=== PATIENT | male | born 1955 | race Caucasian/White ===

== ENCOUNTER → 2017-07-07 | Outpatient (CLI) | payer OTHER ==
--- NOTE | 2017-07-07 12:26 | RADIOLOGY REPORT (SQ) ---
EXAM DESCRIPTION: FOOT RIGHT COMPLETE COMPLETED DATE/TIME: 07/07/2017 12:01 pm REASON FOR STUDY: PAIN IN RIGHT FOOT M25.571 PAIN IN RIGHT ANKLE AND JOINTS OF RIGHT FOOT M79.671 PAIN IN RIGHT FOOT COMPARISON: None. NUMBER OF VIEWS: Three views. TECHNIQUE: AP, lateral and oblique without weight bearing radiographic images acquired of the right foot. LIMITATIONS: None. FINDINGS: MINERALIZATION: Normal. BONES: No acute fracture or dislocation. No worrisome bone lesions. No significant osteophytes. JOINTS: No erosions. No taqueria-articular osteopenia. No chondrocalcinosis. SOFT TISSUES: No swelling. No calcifications. OTHER: No other significant finding. IMPRESSION: NEGATIVE STUDY OF THE RIGHT FOOT. NO EXPLANATION FOR PAIN. TECHNICAL DOCUMENTATION: JOB ID: [id number] [employer]- All Rights Reserved Reading location - IP/workstation name: [email or web address]
--- NOTE | 2017-07-07 12:26 | RADIOLOGY REPORT (SQ) ---
EXAM DESCRIPTION: ANKLE RIGHT COMPLETE COMPLETED DATE/TIME: 07/07/2017 12:01 pm REASON FOR STUDY: PAIN IN RIGHT ANKLE AND JOINT OF RIGHT FOOT M25.571 PAIN IN RIGHT ANKLE AND JOINT S OF RIGHT FOOT M79.671 PAIN IN RIGHT FOOT COMPARISON: None. NUMBER OF VIEWS: Three views. TECHNIQUE: AP, lateral, and oblique radiographic images acquired of the right ankle. LIMITATIONS: None. FINDINGS: MINERALIZATION: Normal. BONES: No acute fracture or dislocation. No worrisome bone lesions. JOINTS: No effusions. SOFT TISSUES: No soft tissue swelling. No foreign body. OTHER: No other significant finding. IMPRESSION: NEGATIVE STUDY OF THE RIGHT ANKLE. NO RADIOGRAPHIC EVIDENCE OF ACUTE INJURY. TECHNICAL DOCUMENTATION: JOB ID: [id number] [employer]- All Rights Reserved Reading location - IP/workstation name: [email or web address]
== END ==
LOC: OD 11:34
PROVIDERS: ATTEND Family Medicine Geriatric Medicine
DX: M25.571 Pain in right ankle and joints of right foot (principal); M79.671 Pain in right foot
CPT/HCPCS: 36415; 84550

== ENCOUNTER → 2017-07-16 | Outpatient (CLI) | payer OTHER ==
--- NOTE | 2017-07-16 16:12 | RADIOLOGY REPORT (SQ) ---
EXAM DESCRIPTION: CT RT LOWER EXTREMITY WITHOUT COMPLETED DATE/TIME: 07/16/2017 3:12 pm REASON FOR STUDY: R ANKLE AND FOOT PAIN M25.571 PAIN IN RIGHT ANKLE AND JOINTS OF RIGHT FOOT M79.67 1 PAIN IN RIGHT FOOT COMPARISON: None. TECHNIQUE: Axial imaging performed through the right foot and ankle with reformatted coronal and sag ittal imaging windowed for bone and soft tissues. Images saved to PACS. 3D IMAGING: Were 3D images as MIP, SSD, or volume rendering performed at the work station? Yes. All CT scanners at this facility use dose modulation, iterative reconstruction, and/or weight based d osing when appropriate to reduce radiation dose to as low as reasonably achievable (ALARA). [facility]: Dose Right [facility]: CareDose [facility]: Dose Right [facility]: Teradose 4D [facility]: [employer] LIMITATIONS: No clinically localizing information available. RADIATION DOSE: CT Rad equipment meets quality standard of care and radiation dose reduction techniq ues were employed. CTDIvol: 4.6 mGy. DLP: 152 mGy-cm. mGy. FINDINGS: SOFT TISSUES: Mild subcutaneous edema along the distal leg laterally. No drainable collec tions. Although CT evaluation is limited for mass, no solid lesions are detected. Mild vascular shady cification. BONES: No evidence of subluxation or dislocation. No fracture or worrisome bone lesion. Mild great toe MP degenerative joint narrowing with small osteophytes. Mild sclerosis, joint space narrowing an d minimal subchondral cysts along the medial aspect of the posterior facet of the subtalar joint. No aggressive subchondral cysts or erosions. Talar dome intact. Mortise maintained. MINERALIZATION: Normal. OTHER: No other significant finding. IMPRESSION: 1. 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 TECHNICAL DOCUMENTATION: JOB ID: [id number] Quality ID # [id number]: Final reports with documentation of one or more dose reduction techniques (e.g., Au tomated exposure control, adjustment of the mA and/or kV according to patient size, use of iterative reconstruction technique) 2010 [employer]- All Rights Reserved Reading location - IP/workstation name: [email or web address]
== END ==
LOC: RAD 14:26
PROVIDERS: ATTEND Family Medicine Geriatric Medicine
DX: M25.571 Pain in right ankle and joints of right foot (principal); M79.671 Pain in right foot